=== PATIENT | female | born 1965 | race Caucasian/White ===

== ENCOUNTER 2017-12-17 02:58 | Inpatient (IN) | payer MEDICAID ==
[~2017-12-17] VITALS: Ht 175.3 cm; Wt 114.0 kg
[2017-12-17 03:54] LABS: PROTHROMBIN TIME 10.1 SECONDS (9.0-12.0)
[2017-12-17] MEDS ORDERED: normal saline 1000ML IV soln IVB ONE (03:55)
[2017-12-17 03:58] LABS: BASOPHILS % (AUTO) 0.2 % (0-1); EOSINOPHILS # (AUTO) 0.2 X10'3 (0-0.9); EOSINOPHILS % (AUTO) 2.7 % (0-6); HEMATOCRIT 38.3 % (35.0-45.0); HEMOGLOBIN 13.1 g/dl (12.0-16.0); LYMPHOCYTES # (AUTO) 1.8 X10'3 (1.1-4.8); LYMPHOCYTES % (AUTO) 21.3 % (21-51); MEAN CORPUSCULAR HEMOGLOBIN 29.6 PG (27.0-31.0); MEAN CORPUSCULAR HGB CONC 34.1 % (33.0-36.5); MEAN CORPUSCULAR VOLUME 86.8 FL (78-98); MEAN PLATELET VOLUME 9.6 FL (7.4-10.4); MONOCYTES # (AUTO) 0.2 X10'3 (0-0.9); MONOCYTES % (AUTO) 2.3 % (2-12); NEUTROPHILS # (AUTO) 6.2 X10'3 (1.8-7.7); NEUTROPHILS % (AUTO) 73.5 % (42-75); PLATELET COUNT 214 X10'3 (140-440); RED BLOOD COUNT 4.41 X10'6 (4.20-5.60); RED CELL DISTRIBUTION WIDTH 14.2 % (11.5-14.5); WHITE BLOOD COUNT 8.5 X10'3 (4.5-11.0)
[2017-12-17 04:00] LABS: ALANINE AMINOTRANSFERASE 32 U/L (12-78); ALBUMIN 3.6 G/DL (3.4-5.0); ALKALINE PHOSPHATASE 120 IU/L (46-116); ANION GAP 9 (8-16); ASPARTATE AMINO TRANSFERASE 20 U/L (10-37); BILIRUBIN,TOTAL 0.6 MG/DL (0.1-1.0); BLOOD UREA NITROGEN 13 MG/DL (7-18); CALCIUM 8.8 MG/DL (8.5-10.1); CHLORIDE 105 MMOL/L (99-107); CREATININE 0.93 MG/DL (0.40-0.90); GLUCOSE 140 MG/DL (70-104); POTASSIUM 3.1 MMOL/L (3.5-5.1); SODIUM 142 MMOL/L (135-145); TOTAL CARBON DIOXIDE 27.8 MMOL/L (24-32); TOTAL PROTEIN 7.2 G/DL (6.4-8.2); eGFR 63 ML/MIN
[2017-12-17 04:16] LABS: URINE HCG NEGATIVE (NEG)
[2017-12-17 04:20] LABS: CLARITY,URINE SLIGHTLY CLOUDY (Clear); COLOR,URINE YELLOW (Yellow); GLUCOSE, URINE NEGATIVE (Neg); KETONES,URINE NEGATIVE (Neg); LEUKOCYTE ESTERASE ,URINE NEGATIVE (Neg); NITRITES, URINE NEGATIVE (Neg); OCCULT BLOOD,URINE LARGE (Neg); PH,URINE 5.5 (4.8-8.0); PROTEIN,URINE TRACE mg/dl (Neg); UROBILINOGEN,URINE 0.2 E.U/dL (0.2-1.0)
[2017-12-17 04:23] LABS: TROPONIN I < 0.04 NG/ML (0.0-0.05)
[2017-12-17 04:26] LABS: UA COLLECTION TYPE STRAIGHT CATH
[2017-12-17 04:28] LABS: URINE AMPHETAMINE SCREEN POSITIVE (Neg); URINE BARBITUATE SCREEN NEGATIVE (Neg); URINE BENZODIAZEPINES SCREEN NEGATIVE (Neg); URINE CANNABINOID SCREEN NEGATIVE (Neg); URINE COCAINE SCREEN NEGATIVE (Neg); URINE METHADONE SCREEN NEGATIVE (Neg); URINE OPIATE SCREEN NEGATIVE (Neg); URINE PHENCYCLIDINE SCREEN NEGATIVE (Neg)
[2017-12-17 04:29] LABS: BACTERIA,URINE NONE SEEN /HPF (Neg); MUCUS STRANDS MANY /LPF (Neg); SQUAMOUS EPITHELIAL CELL,UR FEW /LPF (FEW)
[2017-12-17 04:31] LABS: AMORPHOUS URATES 3+
[2017-12-17 04:41] LABS: ETHANOL < 0.010 GM/DL (0.0-0.010)
[2017-12-17 04:49] LABS: LARGE PLATELETS FEW; PLATELET ESTIMATE NORMAL; TOTAL CELLS COUNTED 100
[2017-12-17] MEDS ORDERED: potassium Cl 20 mEq SR tablet PO ONE (05:15)
[2017-12-17] MEDS ORDERED: ondansetron/PF 4mg/2ml inj IV PRN (08:40)
[2017-12-17] MEDS ORDERED: HYDROcodone/acetaminophen 5mg/325mg tablet PO PRN (08:40)
[2017-12-17] MEDS ORDERED: magnesium Cl slow-release 64mg tablet PO PRN (08:40)
[2017-12-17] MEDS ORDERED: morphine 4 MG/ML inj SYRINge IV PRN ×2 (08:40)
[2017-12-17] MEDS ORDERED: magnesium hydroxide 30ml (MOM) UD suspension PO PRN (08:40)
[2017-12-17] MEDS ORDERED: magnesium 1gm/100ml D5W IVPB 100 ML IV PRN (08:40)
[2017-12-17] MEDS ORDERED: magnesium 4gm in 100ml NS 100 ML IV PRN (08:40)
[2017-12-17] MEDS ORDERED: potassium Cl 40MEQ/NS 500ml 500 ML IV PRN ×2 (08:40)
[2017-12-17] MEDS ORDERED: HYDROcodone/acetaminophen 10/325mg tab PO PRN (08:40)
[2017-12-17] MEDS ORDERED: mag hydrox/Alum hydrox/simeth 30ml oral suspension PO PRN (08:40)
[2017-12-17] MEDS ORDERED: bisacodyl 10mg suppository rectal RC PRN (08:40)
[2017-12-17] MEDS ORDERED: acetaminophen 325mg tablet PO PRN (08:40)
[2017-12-17] MEDS ORDERED: potassium Cl 20 mEq SR tablet PO PRN ×2 (08:40)
[2017-12-17] MEDS ORDERED: doxycycline hyclate 100mg tablet.DR PO SCH (08:50)
[2017-12-17] MEDS ORDERED: NO HOME MEDS (09:06)
[2017-12-17 09:14] VITALS: BP 131/73
[2017-12-17] MEDS ORDERED: DOXYCYCLINE 100MG CAPSULE PO ONE (09:40)
[2017-12-17] MEDS: furosemide 20 MG/2 ML vial IV SCH ×2 (09:45→19:32)
[2017-12-17] MEDS: tamsulosin 0.4mg capsule PO SCH ×2 (09:46→19:40)
[2017-12-17] MEDS: potassium Cl 20mEq in NS 1,000 ML IV SCH ×2 (09:47→16:42)
[2017-12-17 11:33] VITALS: BP 123/82
[2017-12-17] MEDS: DOXYCYCLINE 100MG CAPSULE PO SCH (16:42)
[2017-12-17 18:03] LABS: MAGNESIUM 1.9 MG/DL (1.5-2.4)
[2017-12-17 19:00] VITALS: BP 120/65
[2017-12-17] MEDS ORDERED: nicotine 21mg patch - 24 hr TD SCH (19:00)
[2017-12-17] MEDS: heparin, porcine 5000 units/ml vial SQ SCH (19:33)
[2017-12-17] MEDS: docusate sod 100mg capsule PO SCH (19:33)
[2017-12-18] VITALS: BP 131/82
[2017-12-18] MEDS: potassium Cl 20mEq in NS 1,000 ML IV SCH ×2 (00:27→07:45)
[2017-12-18 06:27] LABS: ALBUMIN 3.1 G/DL (3.4-5.0); ANION GAP 5 (8-16); BLOOD UREA NITROGEN 13 MG/DL (7-18); BUN/CREATININE RATIO 15.3 (6.6-38.0); CALCIUM 8.5 MG/DL (8.5-10.1); CHLORIDE 108 MMOL/L (99-107); CREATININE 0.85 MG/DL (0.40-0.90); GLUCOSE 112 MG/DL (70-104); MAGNESIUM 1.8 MG/DL (1.5-2.4); POTASSIUM 3.7 MMOL/L (3.5-5.1); SODIUM 142 MMOL/L (135-145); TOTAL CARBON DIOXIDE 29.2 MMOL/L (24-32); eGFR 70 ML/MIN
[2017-12-18 07:24] VITALS: BP 120/83
[2017-12-18] MEDS: heparin, porcine 5000 units/ml vial SQ SCH (07:26)
[2017-12-18] MEDS: docusate sod 100mg capsule PO SCH (07:27)
[2017-12-18] MEDS: DOXYCYCLINE 100MG CAPSULE PO SCH (07:27)
[2017-12-18] MEDS: furosemide 20 MG/2 ML vial IV SCH (07:28)
[2017-12-18] MEDS ORDERED: K and/or MAG REPLACEMENT MC SCH (08:00)
[2017-12-18 11:45] VITALS: BP 112/64
[2017-12-18] MEDS ORDERED: FAMO-128 PO (13:55)
[2017-12-18] MEDS ORDERED: IBUP-1984 PO (13:55)
[2017-12-18] MEDS ORDERED: DOXY-224 PO (13:55)
[2017-12-18] MEDS ORDERED: nicotine 21mg patch - 24 hr TD SCH (19:00)
== END 2017-12-18 14:35 | disposition home or self-care (01) | DRG 463 ==
LOC: ER 02:59 → ED HOLD 07:36 → SUR 3N 08:38
PROVIDERS: ADMIT Internal Medicine; ATTEND Internal Medicine
DX: N13.6 Pyonephrosis (principal); I42.9 Cardiomyopathy, unspecified; E87.6 Hypokalemia; F15.10 Other stimulant abuse, uncomplicated; J45.909 Unspecified asthma, uncomplicated; B19.20 Unspecified viral hepatitis C without hepatic coma; F17.200 Nicotine dependence, unspecified, uncomplicated; Z86.14 Personal history of Methicillin resistant Staphylococcus aureus infection; Z88.0 Allergy status to penicillin; Z71.51 Drug abuse counseling and surveillance of drug abuser
CPT/HCPCS: 36415; 70450; 71045; 71250; 74176; 76775; 80048; 80053; 80305; 80320; 81001; 81025; 82140; 83735; 84484; 85025; 85610; 87070; 87088; J1644; J1940; J7030

== ENCOUNTER 2017-12-24 05:25 | Emergency (ER) | payer MEDICAID ==
[~2017-12-24] VITALS: Ht 152.4 cm; Wt 85.3 kg
[~2017-12-24 05:25] MED LIST: DOXY-224 PO; FAMO-128 PO; IBUP-1984 PO
[2017-12-24] MEDS ORDERED: HYDROcodone/acetaminophen 10/325mg tab PO ONE (06:20)
[2017-12-24 06:22] LABS: COLOR,URINE STRAW (Yellow); GLUCOSE, URINE NEGATIVE (Neg); KETONES,URINE NEGATIVE (Neg); LEUKOCYTE ESTERASE ,URINE NEGATIVE (Neg); NITRITES, URINE NEGATIVE (Neg); OCCULT BLOOD,URINE LARGE (Neg); PROTEIN,URINE 30 mg/dl (Neg); UROBILINOGEN,URINE 0.2 E.U/dL (0.2-1.0)
[2017-12-24 06:23] LABS: UA COLLECTION TYPE CLN CATCH MIDSTREAM
[2017-12-24 06:27] VITALS: BP 130/88
[2017-12-24 06:37] LABS: CLARITY,URINE SLIGHTLY CLOUDY (Clear); RBC,URINE 20-50 /HPF (0-2); WBC,URINE 0-4 /HPF (0-4)
[2017-12-24 06:38] LABS: BACTERIA,URINE FEW /HPF (Neg); MUCUS STRANDS NONE SEEN /LPF (Neg); SQUAMOUS EPITHELIAL CELL,UR MODERATE /LPF (FEW)
[2017-12-24] MEDS ORDERED: HYDR-3965 PO (06:59)
[2017-12-24] MEDS ORDERED: FLO0.4C PO (06:59)
== END 2017-12-24 07:21 | disposition home or self-care (01) ==
LOC: ER 05:25
DX: N23 Unspecified renal colic (principal); N13.30 Unspecified hydronephrosis; J45.909 Unspecified asthma, uncomplicated; F15.90 Other stimulant use, unspecified, uncomplicated; Z98.890 Other specified postprocedural states; Z90.89 Acquired absence of other organs; Z56.0 Unemployment, unspecified; Z88.0 Allergy status to penicillin; Z79.2 Long term (current) use of antibiotics
CPT/HCPCS: 76775; 81001; 99285

== ENCOUNTER 2019-06-15 13:59 | Emergency (ER) | payer MEDICAID ==
[~2019-06-15] VITALS: Ht 175.3 cm; Wt 90.9 kg
[~2019-06-15 13:59] MED LIST changes: -IBUP-1984 PO
[2019-06-15] MEDS ORDERED: aspirin 325mg tablet PO ONE (14:25)
[2019-06-15] MEDS ORDERED: LORazepam 2 mg/ml vial IV ONE (14:35)
[2019-06-15] MEDS ORDERED: normal saline 1000ml 1,000 ML IV ONE (14:35)
[2019-06-15 14:50] LABS: BASOPHILS # (AUTO) 0.1 X10'3 (0-0.2); BASOPHILS % (AUTO) 0.7 % (0-1); EOSINOPHILS # (AUTO) 0.1 X10'3 (0-0.9); EOSINOPHILS % (AUTO) 1.3 % (0-6); HEMATOCRIT 46.7 % (35.0-45.0); LYMPHOCYTES # (AUTO) 1.8 X10'3 (1.1-4.8); LYMPHOCYTES % (AUTO) 23.5 % (21-51); MEAN CORPUSCULAR HEMOGLOBIN 30.1 PG (27.0-31.0); MEAN CORPUSCULAR HGB CONC 34.3 g/dL (33.0-36.5); MEAN CORPUSCULAR VOLUME 87.9 FL (78-98); MEAN PLATELET VOLUME 8.8 FL (7.4-10.4); MONOCYTES # (AUTO) 0.4 X10'3 (0-0.9); MONOCYTES % (AUTO) 4.6 % (2-12); NEUTROPHILS # (AUTO) 5.4 X10'3 (1.8-7.7); NEUTROPHILS % (AUTO) 69.9 % (42-75); PLATELET COUNT 271 X10'3 (140-440); RED BLOOD COUNT 5.32 X10'6 (4.20-5.60); RED CELL DISTRIBUTION WIDTH 13.1 % (11.5-14.5); WHITE BLOOD COUNT 7.7 X10'3 (4.5-11.0)
[2019-06-15 14:52] LABS: ALANINE AMINOTRANSFERASE 37 U/L (12-78); ALBUMIN 3.9 G/DL (3.4-5.0); ALKALINE PHOSPHATASE 123 IU/L (46-116); ANION GAP 9 (8-16); ASPARTATE AMINO TRANSFERASE 24 U/L (10-37); BILIRUBIN,TOTAL 0.5 MG/DL (0.1-1.0); BLOOD UREA NITROGEN 16 MG/DL (7-18); BUN/CREATININE RATIO 20.8 (6.6-38.0); CALCIUM 9.2 MG/DL (8.5-10.1); CHLORIDE 103 MMOL/L (99-107); CREATININE 0.77 MG/DL (0.40-0.90); GLUCOSE 127 MG/DL (70-104); POTASSIUM 3.7 MMOL/L (3.5-5.1); SODIUM 140 MMOL/L (135-145); TOTAL CARBON DIOXIDE 27.9 MMOL/L (24-32); TOTAL PROTEIN 7.9 G/DL (6.4-8.2); eGFR 78 ML/MIN
[2019-06-15 15:15] LABS: D-DIMER < 0.19 MG/L FEU (0-0.50)
--- NOTE | 2019-06-15 16:32 | NUR ---
Patient is resting with her eyes close. Respirations unlabored. NAD.
[2019-06-15 18:17] VITALS: BP 139/90
== END 2019-06-15 18:28 | disposition home or self-care (01) ==
LOC: ER 14:00
DX: R07.89 Other chest pain (principal); R11.0 Nausea; R32 Unspecified urinary incontinence; J45.909 Unspecified asthma, uncomplicated; F15.90 Other stimulant use, unspecified, uncomplicated; F17.200 Nicotine dependence, unspecified, uncomplicated; Z86.19 Personal history of other infectious and parasitic diseases; Z86.14 Personal history of Methicillin resistant Staphylococcus aureus infection; Z98.890 Other specified postprocedural states; Z88.0 Allergy status to penicillin; Z79.899 Other long term (current) drug therapy
CPT/HCPCS: 36415; 71045; 80053; 84484; 85025; 85379; 93005; 96374; 99284; J2060; J7030

== ENCOUNTER 2019-08-14 15:46 | Emergency (ER) | payer MEDICAID ==
[~2019-08-14] VITALS: Ht 175.3 cm; Wt 104.5 kg
[2019-08-14] MEDS ORDERED: normal saline 1000ML IV soln IVB ONE (16:00)
[2019-08-14 16:20] LABS: BASOPHILS # (AUTO) 0.1 X10'3 (0-0.2); BASOPHILS % (AUTO) 0.8 % (0-1); EOSINOPHILS # (AUTO) 0.1 X10'3 (0-0.9); HEMATOCRIT 41.6 % (35.0-45.0); HEMOGLOBIN 13.9 g/dl (12.0-16.0); LYMPHOCYTES # (AUTO) 1.4 X10'3 (1.1-4.8); LYMPHOCYTES % (AUTO) 18.6 % (21-51); MEAN CORPUSCULAR HGB CONC 33.3 g/dL (33.0-36.5); MONOCYTES # (AUTO) 0.3 X10'3 (0-0.9); MONOCYTES % (AUTO) 3.6 % (2-12); NEUTROPHILS # (AUTO) 5.7 X10'3 (1.8-7.7); PLATELET COUNT 280 X10'3 (140-440); RED BLOOD COUNT 4.78 X10'6 (4.20-5.60); WHITE BLOOD COUNT 7.5 X10'3 (4.5-11.0)
[2019-08-14 16:30] LABS: ALANINE AMINOTRANSFERASE 33 U/L (12-78); ALBUMIN 4.1 G/DL (3.4-5.0); ALBUMIN/GLOBULIN RATIO 1.1 (1.1-1.5); ALKALINE PHOSPHATASE 114 IU/L (46-116); ANION GAP 9 (8-16); ASPARTATE AMINO TRANSFERASE 31 U/L (10-37); BILIRUBIN,TOTAL 0.4 MG/DL (0.1-1.0); BLOOD UREA NITROGEN 17 MG/DL (7-18); BUN/CREATININE RATIO 15.7 (6.6-38.0); CALCIUM 9.1 MG/DL (8.5-10.1); CHLORIDE 104 MMOL/L (99-107); CREATININE 1.08 MG/DL (0.40-0.90); GLUCOSE 108 MG/DL (70-104); POTASSIUM 3.6 MMOL/L (3.5-5.1); SODIUM 140 MMOL/L (135-145); TOTAL CARBON DIOXIDE 27.1 MMOL/L (24-32); eGFR 53 ML/MIN
[2019-08-14 18:05] LABS: CLARITY,URINE SLIGHTLY CLOUDY (Clear); COLOR,URINE YELLOW (Yellow); GLUCOSE, URINE NEGATIVE (Neg); KETONES,URINE NEGATIVE (Neg); LEUKOCYTE ESTERASE ,URINE MODERATE (Neg); NITRITES, URINE NEGATIVE (Neg); OCCULT BLOOD,URINE LARGE (Neg); PROTEIN,URINE NEGATIVE (Neg); URINE HCG NEGATIVE (NEG); UROBILINOGEN,URINE 0.2 E.U/dL (0.2-1.0)
[2019-08-14 18:17] LABS: URINE AMPHETAMINE SCREEN POSITIVE (Neg); URINE BARBITUATE SCREEN NEGATIVE (Neg); URINE BENZODIAZEPINES SCREEN NEGATIVE (Neg); URINE CANNABINOID SCREEN NEGATIVE (Neg); URINE COCAINE SCREEN NEGATIVE (Neg); URINE METHADONE SCREEN NEGATIVE (Neg); URINE OPIATE SCREEN NEGATIVE (Neg); URINE PHENCYCLIDINE SCREEN NEGATIVE (Neg)
[2019-08-14 18:23] LABS: UA COLLECTION TYPE CLN CATCH MIDSTREAM
[2019-08-14 18:24] LABS: BACTERIA,URINE 1+ /HPF (Neg); MUCUS STRANDS FEW /LPF (Neg); SQUAMOUS EPITHELIAL CELL,UR MANY /LPF (FEW)
[2019-08-14 18:25] LABS: CAL OXALATE CRYSTALS FEW /HPF (NEGATIVE)
[2019-08-14 18:26] LABS: WBC,URINE 0-4 /HPF (0-4)
[2019-08-14] MEDS ORDERED: ONDA4TAB6 PO (18:46)
[2019-08-14] MEDS ORDERED: SULF1TAB49 PO (18:46)
[2019-08-14] MEDS ORDERED: HYDR-4383 PO (19:55)
[2019-08-14] MEDS ORDERED: FLO0.4C PO (19:55)
[2019-08-14 20:17] VITALS: BP 147/107
== END 2019-08-14 20:18 | disposition home or self-care (01) ==
LOC: ER 15:47
DX: N20.0 Calculus of kidney (principal); J45.909 Unspecified asthma, uncomplicated; F15.90 Other stimulant use, unspecified, uncomplicated; Z86.19 Personal history of other infectious and parasitic diseases; Z86.14 Personal history of Methicillin resistant Staphylococcus aureus infection; Z98.890 Other specified postprocedural states; Z56.0 Unemployment, unspecified; Z88.0 Allergy status to penicillin; Z88.6 Allergy status to analgesic agent; Z79.2 Long term (current) use of antibiotics; Z79.899 Other long term (current) drug therapy
CPT/HCPCS: 36415; 74176; 80053; 80305; 81001; 81025; 85025; 85610; 99285; J7030